=== PATIENT | male | born 1990 | race Two or more races ===

== ENCOUNTER 2018-01-19 18:38 | Emergency (ER) | payer BC ==
[2018-01-19] MEDS ORDERED: Dexamethasone 4 MG/ML 5 ML MDV IM ONE (19:32)
--- NOTE | 2018-01-19 19:38 | EDM.PDOC ---
ED HPI GENERAL MEDICAL PROBLEM - General Chief Complaint: General Stated Complaint: BURN Time Seen by Provider: 01/19/18 19:15 Source of Information: Reports: Patient, Family History Limitations: Reports: No Limitations - History of Present Illness INITIAL COMMENTS - FREE TEXT/NARRATIVE: Saurabh [place] the [place] yesterday, and experienced a sunburn affecting the back torso. Blisters on the shoulders have recently appeared. There is pain, no itching, and requests for medical management. He is taking no prescription meds. - Related Data Allergies Allergy/AdvReac Type Severity Reaction Status Date / Time No Known Allergies Allergy Verified 01/19/18 19:24 Social & Family History - Tobacco Use Smoking Status *Q: Never Smoker - Alcohol Use Days Per Week of Alcohol Use: 1 Number of Drinks Per Day: 2 Total Drinks Per Week: 2 - Recreational Drug Use Recreational Drug Use: No Other Recreational Drug Type: Patient denies recreatinal drug use. ED ROS GENERAL - Review of Systems Review Of Systems: ROS reveals no pertinent complaints other than HPI. ED EXAM, GENERAL - Physical Exam Exam: See Below Exam Limited By: No Limitations General Appearance: Alert, WD/WN, Mild Distress, Obese Eye Exam: Bilateral Eye: EOMI, Normal Inspection, PERRL Ears: Normal External Exam Nose: Normal Inspection Throat/Mouth: Normal Inspection Head: Normocephalic, Other (sunburn 1st deg) Neck: Supple, Full Range of Motion, Other (sunburn 1st deg) Respiratory/Chest: Lungs Clear, Normal Breath Sounds Cardiovascular: Regular Rate, Rhythm, No Murmur GI/Abdominal: Normal Bowel Sounds, Soft, Non-Tender, No Organomegaly, No Distention, No Mass (Male) Exam: Normal Inspection Rectal (Males) Exam: Deferred Back Exam: Full Range of Motion, Other (2nd deg sunburn involving the shoulders and upper back) Extremities: Normal Range of Motion, Redness Neurological: Alert, Oriented, CN II-XII Intact, Normal Cognition, Normal Gait, No Motor/Sensory Deficits Psychiatric: Normal Affect, Normal Mood Skin Exam: Warm, Dry, Intact, Erythema Lymphatic: No Adenopathy Course - Vital Signs Text/Narrative:: I administered Dexamethasone 10 mg IM before discharge. - Orders/Labs/Meds Orders: Active Orders 24 hr Category Date Time Status Dexamethasone Med 01/19/18 19:32 Once 10 mg IM ONETIME ONE Departure - Departure Time of Disposition: 19:40 Disposition: Home, Self-Care 01 Condition: Fair Clinical Impression: Sunburn, second degree - Discharge Information *PRESCRIPTION DRUG MONITORING PROGRAM REVIEWED*: Not Applicable *COPY OF PRESCRIPTION DRUG MONITORING REPORT IN PATIENT DANGELO: Not Applicable Referrals: PCP,None [Primary Care Provider] - - Problem List & Annotations (1) Sunburn, second degree SNOMED Code(s): 028401456 Code(s): L55.1 - SUNBURN OF SECOND DEGREE Status: Acute Current Visit: Yes Annotation/Comment:: I suggested NSAIDs, aloe vera-based gels or creams for comfort, cool compresses, and rest. - Problem List Review Problem List Initiated/Reviewed/Updated: Yes - My Orders Last 24 Hours: My Active Orders 01/19/18 19:32 Dexamethasone 10 mg IM ONETIME ONE - Assessment/Plan Last 24 Hours: My Active Orders 01/19/18 19:32 Dexamethasone 10 mg IM ONETIME ONE Plan: Follow up with PCP if needed.
== END 2018-01-19 19:50 | disposition home or self-care (01) ==
LOC: FB.ED 18:38
DX: L55.1 Sunburn of second degree (principal)
CPT/HCPCS: 96372; 99282; J1100